=== PATIENT | female | born 1950 | race Caucasian/White ===

== ENCOUNTER → 2021-06-25 | Day surgery (SDC) | payer MEDICARE, OTHER ==
[~2021-06-25] VITALS: Ht 157.5 cm; Wt 102.2 kg
[~2021-06-25] MED LIST: ATOR40TA59 PO; CETI10TA16 PO; GABA300C18 PO; IV RINGERS,LACTATED 1000ML 1,000 ML IV SCH; LIDOCAINE 2% PF 5 ML VIAL. ONE; LISI20TA18 PO; MONT10TA49 PO; PROPOFOL 10 MG/ML (20ML) VIAL. IV ONE
[2021-06-25 08:54] VITALS: BP 123/59
[2021-06-25 10:40] VITALS: BP 121/56
--- NOTE | 2021-06-27 04:37 | HP ---
DATE OF SERVICE: 06/25/2021 ADMIT DATE: 06/25/2021 UPDATED HISTORY AND PHYSICAL REASON: Colorectal screening with family history of colon cancer. HISTORY OF PRESENT ILLNESS: A 71-year-old female whose past medical history is significant for hyperlipidemia, hypertension, asthma, seen for screening colon exam. Bowel habits are regular without diarrhea or constipation. Weight and appetite are stable. There has been no bleeding. She is otherwise without additional complaints. PAST MEDICAL HISTORY: Colon cancer with her grandmother. ALLERGIES: ASPARTAME AND NIACIN. MEDICATIONS: Include atorvastatin, cetirizine, gabapentin, lisinopril, montelukast. SOCIAL HISTORY: Social drinker, nonsmoker. PAST SURGICAL HISTORY: Back surgery, , cholecystectomy, tonsillectomy, tubal ligation. REVIEW OF SYSTEMS: Per records. PHYSICAL EXAMINATION: GENERAL: Reveals a well-nourished, well-developed female who is alert, cooperative, in no acute distress. VITAL SIGNS: Temperature 97.9, pulse 75, respiratory rate 20. LUNGS: Clear. CARDIOVASCULAR: Reveals an S1, S2, without S3, S4 or appreciable murmur. ABDOMEN: Reveals a soft abdomen, normal bowel sounds, without appreciable hepatosplenomegaly. Multiple surgical incisions. EXTREMITIES: No cyanosis, clubbing or edema. IMPRESSION: Family history of colon cancer. Surveillance exam is recommended at this time. Risks and benefits of procedure including risk of hemorrhage and perforation were discussed. She is willing to proceed. DURGA/MARIE DR: Kendell TID: [id number]
== END | disposition home or self-care (01) ==
LOC: ENDOS 08:19
PROVIDERS: ATTEND Internal Medicine Gastroenterology
DX: Z12.11 Encounter for screening for malignant neoplasm of colon (principal); K64.0 First degree hemorrhoids; K63.89 Other specified diseases of intestine; K57.30 Diverticulosis of large intestine without perforation or abscess without bleeding; I10 Essential (primary) hypertension; J45.909 Unspecified asthma, uncomplicated; G47.30 Sleep apnea, unspecified; K21.9 Gastro-esophageal reflux disease without esophagitis; Z90.49 Acquired absence of other specified parts of digestive tract; Z98.51 Tubal ligation status; Z98.890 Other specified postprocedural states; Z88.8 Allergy status to other drugs, medicaments and biological substances; Z80.0 Family history of malignant neoplasm of digestive organs
CPT/HCPCS: G0105; J2704; 45378